=== PATIENT | male | born 1955 | race Caucasian/White ===

== ENCOUNTER → 2018-03-21 | Outpatient (CLI) | payer OTHER ==
[~2018-03-21] MED LIST: OMNIPAQUE 350 MG/ML, 100ML BOTTLE ONE
== END | disposition home or self-care (01) ==
LOC: RAD 10:15
PROVIDERS: ATTEND Surgery
DX: I71.4 Abdominal aortic aneurysm, without rupture (principal); I77.1 Stricture of artery
CPT/HCPCS: 74174; Q9967

== ENCOUNTER → 2018-05-04 | Outpatient (CLI) | payer OTHER ==
[~2018-05-04] MED LIST changes: +ATOR40TA78 PO; +ESCI20TA PO; +FEXO60TA24 PO; +FLUT9.9S NS; +LISI-167 PO; +OMEP20TA62 PO; -OMNIPAQUE 350 MG/ML, 100ML BOTTLE ONE; +TETR15DR16 EACHEYE; +UMEC1DIS INH
[2018-05-04 14:44] LABS: BASOPHILS # (AUTO) 0.05 x10^3/uL (0-0.1); BASOPHILS % (AUTO) 1 % (0-1); EOSINOPHILS # (AUTO) 0.14 x10^3/uL (0-0.4); EOSINOPHILS % (AUTO) 2 % (1-7); LYMPHOCYTES # (AUTO) 2.39 x10^3/uL (1-3.4); LYMPHOCYTES % (AUTO) 30 % (22-44); MD NO; MEAN CORPUSCULAR VOLUME 91.1 fL (81-97); MEAN PLATELET VOLUME 6.9 fL (7.4-10.4); MONOCYTES # (AUTO) 0.54 x10^3/uL (0.2-0.8); MONOCYTES % (AUTO) 7 % (2-9); NEUTROPHILS # (AUTO) 4.98 x10^3/uL (1.8-6.8); NEUTROPHILS % (AUTO) 61 % (42-75); PLATELET COUNT 337 x10^3/uL (130-400); RED BLOOD COUNT 4.99 x10^6/uL (4.38-5.82); RED CELL DISTRIBUTION WIDTH 14.3 % (9.4-14.8)
[2018-05-04 14:56] LABS: ALANINE AMINOTRANSFERASE 15 U/L (12-78); ALBUMIN 3.7 g/dL (3.4-5.0); ANION GAP 8 mmol/L (5-15); CALCIUM 9.3 mg/dL (8.5-10.1); CHLORIDE 108 mmol/L (98-107); CREATININE 0.91 mg/dL (0.7-1.3)
[2018-05-04 14:58] LABS: ALKALINE PHOSPHATASE 47 U/L (45-117); BILIRUBIN,TOTAL 0.4 mg/dL (0.2-1.0); TOTAL PROTEIN 7.6 g/dL (6.4-8.2)
== END | disposition home or self-care (01) ==
LOC: STAR 13:35
PROVIDERS: ATTEND Surgery
DX: Z01.818 Encounter for other preprocedural examination (principal)
CPT/HCPCS: 36415; 71046; 80053; 85025; 93005

== ENCOUNTER 2018-05-11 10:03 | Inpatient (IN) | payer OTHER ==
[~2018-05-11] VITALS: Ht 175.3 cm; Wt 65.2 kg
[2018-05-11] MEDS ORDERED: PROTAMINE SULFATE 10 MG/ML, 5ML ONE (10:30)
[2018-05-11] MEDS ORDERED: HEPARIN 1,000 UNITS/ML, 30ML ONE (10:30)
[2018-05-11] MEDS ORDERED: BUPIVACAINE/PF-EPI 0.5% 1:200K ONE (10:30)
[2018-05-11] MEDS ORDERED: THROMBIN SPRAY 20,000 UNIT SPRAY TP ONE (10:31)
[2018-05-11] MEDS ORDERED: LACTATED RINGERS 1,000 ML IV SCH (10:31)
[2018-05-11] MEDS ORDERED: HEPARIN 1,000 UNITS/ML, 10ML ONE (10:31)
[2018-05-11 10:35] VITALS: BP 127/80
[2018-05-11] MEDS ORDERED: DEXAMETHASONE 4 MG/ML, 1ML ONE (12:42)
[2018-05-11] MEDS ORDERED: NEOSTIGMINE 1 MG/ML, 10ML ONE (12:42)
[2018-05-11] MEDS ORDERED: PROPOFOL 10 MG/ML, 20ML ONE (12:42)
[2018-05-11] MEDS ORDERED: ONDANSETRON 2MG/ML, 2ML ONE (12:42)
[2018-05-11] MEDS ORDERED: GLYCOPYRROLATE 0.2MG/1ML, 5ML ONE (12:42)
[2018-05-11] MEDS ORDERED: CEFAZOLIN 1,000 MG ONE (12:42)
[2018-05-11] MEDS ORDERED: ROCURONIUM 10 MG/ML,10ML ONE (12:42)
[2018-05-11] MEDS ORDERED: METOPROLOL 1 MG/ML, 5ML IV PRN (13:30)
[2018-05-11] MEDS ORDERED: ONDANSETRON 2MG/ML, 2ML IV PRN (13:30)
[2018-05-11] MEDS ORDERED: EPHEDRINE 50 MG/ML, 1ML IVPush PRN (13:30)
[2018-05-11] MEDS ORDERED: ALBUTEROL SULFATE 2.5 MG/3 ML NPPB PRN (13:30)
[2018-05-11] MEDS ORDERED: LABETALOL 5MG/ML, 20ML IV PRN (13:30)
[2018-05-11] MEDS ORDERED: hydrALAzine 20 MG/ML, 1ML IV PRN (13:30)
[2018-05-11] MEDS ORDERED: ACETAMINOPHEN 325 MG TABLET PO PRN (13:30)
[2018-05-11] MEDS ORDERED: FENTANYL PF 100 MCG/2ML IV PRN (13:30)
[2018-05-11] MEDS ORDERED: OXYcodone 5 MG/5 ML ORAL.SOL UDC PO PRN (13:30)
[2018-05-11] MEDS ORDERED: PROMETHAZINE 25 MG/ML, 1ML IV PRN (13:30)
[2018-05-11] MEDS ORDERED: MEPERIDINE/PF 25MG/0.5ML IVPush PRN (13:30)
[2018-05-11] MEDS ORDERED: HEPARIN 1,000 UNITS/ML, 10ML IV ONE (13:31)
[2018-05-11] MEDS ORDERED: FENTANYL PF 100 MCG/2ML ONE ×2 (14:22→14:51)
[2018-05-11] MEDS ORDERED: OXYcodone 5 MG/5 ML ORAL.SOL UDC ONE (14:52)
[2018-05-11] MEDS ORDERED: ONDANSETRON 2MG/ML, 2ML IVPush PRN (15:00)
[2018-05-11] MEDS ORDERED: HYDROcodone/APAP 5/325 TABLET PO PRN (15:00)
[2018-05-11] MEDS ORDERED: ENOXAPARIN 40 MG/0.4 ML SQ SCH (15:00)
[2018-05-11] MEDS ORDERED: PROMETHAZINE 25 MG/ML, 1ML ONE (15:02)
[2018-05-11] MEDS: FLUTICASONE NASAL SPRAY 16GM NAS SCH (17:00)
[2018-05-11] MEDS: D5%-0.45% NACL 1,000 ML IV SCH (18:54)
[2018-05-11 20:10] VITALS: BP 163/82
[2018-05-11] MEDS ORDERED: ATORVASTATIN 40 MG TABLET PO SCH (21:00)
[2018-05-11 23:54] VITALS: BP 151/78
[2018-05-12 03:43] VITALS: BP 155/73
[2018-05-12] MEDS: D5%-0.45% NACL 1,000 ML IV SCH (04:13)
[2018-05-12] MEDS ORDERED: OMEPRAZOLE 20 MG CAPSULE.DR PO SCH (06:00)
[2018-05-12 07:00] VITALS: BP 146/66
[2018-05-12] MEDS ORDERED: TEMPLATE NON-FORMULARY MED. (Umeclidinium Brm/Vilanterol Tr (Anoro Ellipta 62.5-25 Mcg Inh INH SCH (09:00)
[2018-05-12] MEDS ORDERED: CITALOPRAM 20 MG TABLET PO SCH (09:00)
[2018-05-12] MEDS ORDERED: TETRAHYDROZOLINE OPHTH 0.05% 15ML OP SCH (09:00)
[2018-05-12] MEDS ORDERED: LISINOPRIL 10 MG TABLET PO SCH (09:00)
[2018-05-12] MEDS ORDERED: LORATADINE 10 MG TABLET PO SCH (09:00)
[2018-05-12] MEDS: FLUTICASONE NASAL SPRAY 16GM NAS SCH (09:27)
[2018-05-12 12:27] VITALS: BP 127/58
[2018-05-12] MEDS ORDERED: ACET325C5 PO (15:28)
== END 2018-05-12 17:20 | disposition home or self-care (01) | DRG 269 ==
LOC: ORIP 10:03 → EDSTATUS 12:00 → 4NOR 16:24 → DCLOUNGE 05-12 17:20
PROVIDERS: ADMIT Surgery; ATTEND Surgery
PROC: 047D3ZZ Dilation of Left Common Iliac Artery, Percutaneous Approach (ICD-10-PCS; 2018-05-11)
PROC: 03HY32Z Insertion of Monitoring Device into Upper Artery, Percutaneous Approach (ICD-10-PCS; 2018-05-11)
PROC: 04V03DZ Restriction of Abdominal Aorta with Intraluminal Device, Percutaneous Approach (ICD-10-PCS; principal; 2018-05-11 12:00)
DX: I71.4 Abdominal aortic aneurysm, without rupture (principal); E78.5 Hyperlipidemia, unspecified; K21.9 Gastro-esophageal reflux disease without esophagitis; F17.200 Nicotine dependence, unspecified, uncomplicated; I10 Essential (primary) hypertension; F32.9 Major depressive disorder, single episode, unspecified; J44.9 Chronic obstructive pulmonary disease, unspecified; Z90.49 Acquired absence of other specified parts of digestive tract; Z90.5 Acquired absence of kidney; Z82.49 Family history of ischemic heart disease and other diseases of the circulatory system; Z80.8 Family history of malignant neoplasm of other organs or systems
CPT/HCPCS: 36415; J3490; 34705; 34812; 86850; 86900; 86923; C1725; G0378; J0690; J1100; J1644; J1650; J2405; J2550; J2704; J2710; J2720; J3010; C1751; C1768; C1769; C1894; C2628; J7120

== ENCOUNTER → 2018-06-13 | Outpatient (CLI) | payer OTHER ==
[~2018-06-13] MED LIST changes: +ACET325C5 PO; +OMNIPAQUE 350 MG/ML, 100ML BOTTLE ONE
== END | disposition home or self-care (01) ==
LOC: CFH 12:53
PROVIDERS: ATTEND Physician Assistant Surgical
DX: I71.4 Abdominal aortic aneurysm, without rupture (principal); N28.1 Cyst of kidney, acquired; I70.90 Unspecified atherosclerosis
CPT/HCPCS: 74174; 82565; Q9967